=== PATIENT | male | born 1990 | race Caucasian/White ===

== ENCOUNTER 2017-09-17 10:27 | Emergency (ER) | payer OTHER ==
[~2017-09-17] VITALS: Ht 167.6 cm; Wt 81.2 kg
[2017-09-17 10:33] VITALS: Ht 167.6 cm; Wt 81.2 kg
[2017-09-17 12:41] VITALS: BP 138/89
== END 2017-09-17 12:41 | disposition home or self-care (01) ==
LOC: ED 10:27
DX: B37.9 Candidiasis, unspecified (principal); L03.115 Cellulitis of right lower limb; R59.0 Localized enlarged lymph nodes
CPT/HCPCS: 90715; J0690; Q0092